=== PATIENT | female | born 1975 | race Caucasian/White ===

== ENCOUNTER 2023-06-14 15:35 | Emergency (ER) | payer BC ==
[2023-06-14] MEDS ORDERED: SODIUM CHLORIDE 1,000 ML IV STA (15:41)
[2023-06-14 15:50] VITALS: BP 125/88; RESP 16; BMI 23.6
[2023-06-14 16:15] LABS: HEMATOCRIT 49.3 % (32.4-45.2); HEMOGLOBIN 16.1 G/dL (10.7-15.3); MCH 28.2 pg (25.7-33.7); MCHC 32.7 g/dl (32.0-36.0); MEAN CELL VOLUME 86.2 fl (80-96); MEAN PLT VOLUME 7.4 fl (7.5-11.1); PLATELET COUNT 263.2 10^3/uL (134-434); RBC 5.72 10^6/uL (3.60-5.2); RDW 14.9 % (11.6-15.6); WHITE BLOOD COUNT 6.2 10^3/uL (4.0-10.8)
[2023-06-14 16:26] LABS: ALBUMIN 4.7 g/dl (3.4-5.0); BILIRUBIN,TOTAL 0.6 mg/dl (0.2-1); CALCIUM 10.1 mg/dl (8.5-10.1); CREATININE 0.9 mg/dl (0.6-1.3); TOT PROT 7.3 g/dl (6.4-8.2)
[2023-06-14 16:32] LABS: PLATELET ESTIMATE ADEQUATE
[2023-06-14 17:22] VITALS: PULSE 103; TEMP 100
== END 2023-06-14 17:36 | disposition home or self-care (01) ==
LOC: FER 15:35
PROC: 3E0337Z Introduction of Electrolytic and Water Balance Substance into Peripheral Vein, Percutaneous Approach (ICD-10-PCS; principal; 2023-06-14)
DX: R11.2 Nausea with vomiting, unspecified (principal); R19.7 Diarrhea, unspecified; R50.9 Fever, unspecified; A08.4 Viral intestinal infection, unspecified
CPT/HCPCS: 36415; 80053; 81003; 81015; 83690; 85027; 99284-25